=== PATIENT | male | born 1960 | race Caucasian/White ===

== ENCOUNTER 2018-08-19 05:13 | Inpatient (IN) ==
[2018-08-14 13:23] LABS: Appearance,Urine CLEAR; Bilirubin,Urine NEG (NEG); Color,Urine YELLOW; Glucose,Urine (UA) NEGATIVE (NEG); Leukocyte Esterase,Urine NEG /uL (NEG); Protein,Urine NEG (NEG); Specific Gravity,Urine 1.016 (1.000-1.035); Urine Blood NEG mg/dL (<0.03); Urobilinogen,Urine NEG (NEG)
[2018-08-14 14:21] LABS: Blood Urea Nitrogen 18 mg/dl (6-20)
[2018-08-14 14:34] LABS: Basophils # (Auto) 0 K/mcL (0.0-0.3); Basophils % (Auto) 0.6 % (0.0-2.0); Eosinophils # (Auto) 0.1 K/mcL (0.0-0.7); Eosinophils % (Auto) 2.3 % (0.0-7.0); Granulocytes % (Auto) 62.6 % (38.0-78.0); Lymphocytes # (Auto) 1.4 K/mcL (1.5-4.8); Lymphocytes % (Auto) 26.1 % (15.5-49.0); Mean Cell Volume 88.9 fL (80.0-100.0); Mean Corpuscular HGB Conc 33.7 g/dL (31.0-36.0); Monocytes # (Auto) 0.5 K/mcL (0.1-0.9); Monocytes % (Auto) 8.4 % (1.0-12.0); Platelet Count 248 K/mcL (140-440); RBC 5.25 M/mcL (4.50-5.90); Red Cell Distribution Width 13.1 % (11.5-14.5)
[2018-08-14 15:00] LABS: Estimated Average Glucose(eAG) 194 mg/dL; Hemoglobin A1C 8.4 % HGB (4.0-6.0)
[2018-08-19] MEDS ORDERED: PREGABALIN 75 MG CAPSULE PO SCH (07:00)
[2018-08-19] MEDS ORDERED: ceFAZolin 1 GM VIAL IV SCH (07:00)
[2018-08-19] MEDS ORDERED: oxyCODONE 10 MG TAB.ER.12H PO SCH (07:00)
[2018-08-19] MEDS ORDERED: TRANEXAMIC ACID 1,000 MG/10 ML VIAL IV ONE (07:45)
[2018-08-19] MEDS ORDERED: PROPOFOL 200 MG/20 ML VIAL IV ONE (07:45)
[2018-08-19] MEDS ORDERED: ONDANSETRON 4 MG/2 ML VIAL IV ONE (07:45)
[2018-08-19] MEDS ORDERED: GLYCOPYRROLATE 0.2 MG/ML VIAL IV ONE (07:45)
[2018-08-19] MEDS ORDERED: KETAMINE 100 MG/ML ML IV ONE (07:45)
[2018-08-19] MEDS ORDERED: MIDAZOLAM 5 MG/5 ML VIAL IV ONE (07:45)
[2018-08-19] MEDS ORDERED: DEXAMETHASONE 10 MG/ML VIAL IV ONE (07:45)
[2018-08-19] MEDS ORDERED: LIDOCAINE HCL/PF 100 MG/5 ML SYRINGE IV ONE (07:45)
[2018-08-19] MEDS ORDERED: PHENYLEPHRINE 10 MG/ML VIAL IV ONE (07:45)
[2018-08-19] MEDS ORDERED: HEPARIN 10,000 UNIT/ML VIAL IR ONE (08:25)
[2018-08-19] MEDS ORDERED: IPRATROPIUM/ALBUTEROL 3 ML AMPUL.NEB NEB PRN (08:41)
[2018-08-19] MEDS ORDERED: METHOCARBAMOL 1,000 MG/10 ML VIAL IV PRN (08:41)
[2018-08-19] MEDS ORDERED: MEPERIDINE 25 MG/ML SYRINGE IV PRN (08:41)
[2018-08-19] MEDS ORDERED: LACTATED RINGERS 250 ML IV PRN (08:41)
[2018-08-19] MEDS ORDERED: NALOXONE HCL 0.4 MG/ML VIAL IV PRN (08:41)
[2018-08-19] MEDS ORDERED: ACETAMINOPHEN 1,000 MG/100 ML BOTTLE IV ONE (08:41)
[2018-08-19] MEDS ORDERED: FLUMAZENIL 0.1 MG/ML ML IV PRN (08:41)
[2018-08-19] MEDS ORDERED: ONDANSETRON 4 MG/2 ML VIAL IV PRN ×2 (08:41→09:12)
[2018-08-19] MEDS ORDERED: fentaNYL 100 MCG/2 ML VIAL IV PRN (08:41)
[2018-08-19] MEDS ORDERED: LACTATED RINGERS 1,000 ML IV SCH (08:45)
[2018-08-19] MEDS ORDERED: BENZOCAINE/MENTHOL 1 LOZENGE PO PRN (09:12)
[2018-08-19] MEDS ORDERED: POLYETHYLENE GLYCOL 3350 17 GM PACKET PO PRN (09:12)
[2018-08-19] MEDS ORDERED: MAGNESIUM HYDROXIDE 30 ML ORAL.SUSP PO PRN (09:12)
[2018-08-19] MEDS ORDERED: FLEETS ADULT ENEMA PR PRN (09:12)
[2018-08-19] MEDS ORDERED: KETOROLAC 30 MG/ML VIAL IV PRN (09:12)
[2018-08-19] MEDS ORDERED: BISACODYL 10 MG SUPP.RECT PR PRN (09:12)
[2018-08-19] MEDS ORDERED: TRANEXAMIC ACID 1,000 MG/10 ML VIAL IV SCH (09:12)
--- NOTE | 2018-08-19 09:12 | Brief Operative Note ---
Date of procedure: 08/19/18 Pre-op diagnosis: Left hip severe DJD Post-op diagnosis: same Procedure: Left anterior total hip arthroplasty Grafts/Implants: Yes (Depuy Actis 6 std stem, +1.5 36 delta head, 54 cup, neutral altrx liner) Anesthesia: spinal, GLMA Findings: arthritis Complications: none Surgeon: Ulises Roper Assistant Reading Teacher: Michael Pérez Estimated blood loss (cc): 100 Specimens Removed/Pathology: none sent Condition: stable Disposition: PACU
[2018-08-19] MEDS ORDERED: DEXTROSE 50% 50 ML VIAL IV PRN (09:16)
[2018-08-19] MEDS ORDERED: DEXTROSE 31 GM ORAL.SUSP PO PRN (09:16)
--- NOTE | 2018-08-19 09:57 | XRay Report ---
HISTORY: Postop left hip replacement FINDINGS: There is a well-positioned left total hip prosthesis. No fractures present and there are no abnormal soft tissue calcifications around the joint. There are spurs present along the lateral borders of the iliac crests. IMPRESSION: Well-positioned left hip prosthesis Interpreted and Authenticated by: Jamaal Moore 08/19/18
--- NOTE | 2018-08-19 10:09 | Operative Note ---
DATE OF OPERATION: 08/19/2018 PREOPERATIVE DIAGNOSIS: Left hip severe osteoarthritis. POSTOPERATIVE DIAGNOSIS: Left hip severe osteoarthritis. PROCEDURE PERFORMED: Left anterior total hip arthroplasty placing a DePuy Actis size 6 standard offset femoral stem +1.5 36 mm delta ceramic head ball, 54 [place] no-hole cup with a neutral AltrX liner. SURGEON: Ulises Roper MD DATA MANAGEMENT: Barry Pérez PA-C ANESTHESIA: Spinal plus general. DRAINS: None. SPECIMENS: Femoral head and reamings, which were discarded. BLOOD LOSS: 100 mL COMPLICATIONS: None. POSTOPERATIVE CONDITION: Stable. INDICATIONS FOR SURGERY: This is a 58-year-old male who has had longstanding progressive worsening left hip pain. Radiographs showed large osteophyte off of the acetabulum with joint space narrowing. FINDINGS AT SURGERY: As above. Post implantation showed good component position with leg length and offset jainism and equalization. PROCEDURE IN DETAIL: The patient had been seen preoperatively and informed consent had been obtained after discussion of risks and benefits of surgery, risks including, but not limited to, bleeding, possibly requiring transfusion; infection, possibly requiring implant removal, prolonged IV antibiotics; injury to nerves, blood vessels other surrounding structures; anesthetic risks; incomplete or no resolution of symptoms; leg length discrepancy; dislocation; fracture; DVT and pulmonary embolus risks; and the possibility of needing further revision surgery. He understood these risks and wished to proceed. Correct operative site was marked and patient received spinal anesthesia. He was then taken to the operating room and LMA general given. The patient was carefully positioned on the fracture table. Left hip and groin were carefully prepped and draped in normal sterile fashion. A timeout was performed verifying patient name, operative site, and plan. Standard anterior approach incision was used with a scalpel through skin and subcutaneous tissue. Hemostasis was obtained with Bovie cautery. Blunt dissection was taken down to the tensor fascia and this was undermined circumferentially. IrriSept was irrigated and then a ring retractor was placed. Tensor fascia was incised in line with the muscle fibers and then blunt dissection taken medial to the muscle belly. Blunt cobra retractors were placed on the superior and inferior neck and then circumflex vessels were coagulated and cut and vastus fascia split distally. Anterior capsulectomy was performed and capsule releases taken out towards the trochanters. We then placed a corkscrew in the femoral head. Osteotome was used under fluoro to identify our neck cut trajectory and then oscillating tip saw used to make our cut. We then used a Carnes and corkscrew to lever out the head and then the acetabulum was exposed. Labrum was excised circumferentially. We did remove some of the osteophyte with the osteotome off the acetabulum to aid in getting into the acetabulum. We then used the reamer, directly medializing to the tear drop and then increasing reamer size and angle until a 53 got some rim ream. We then opened a 54 no-hole [place] cup. IrriSept was irrigated in the acetabulum, after a minute pulse lavaged with saline copiously and then we impacted using the [id number] at approximately 40 degrees of inclination and 25 degrees of anteversion. We got good pressfit and a center hole cover was placed. We removed further osteophyte from around the acetabular component and then the neutral AltrX liner was carefully aligned and impacted. Tabs were carefully checked with a tonsil to verify fully seating. Traction was removed from the leg. Capsule release was taken around the medial and posterior neck and then the leg was extended and adducted. Capsule was released out to the greater trochanter. Once we had adequate exposure box osteotome and an awl were used to initiate canal entry and then a rongeur and rasp to lateralize. We then began sequentially broaching. We went up to a size 5 with the [id number], did some limited calcar planning. We then trialled a standard neck with a +1.5 head ball. The hip was reduced without excessive tension. AP pelvis was taken to verify neutral rotation and AP of the nonoperative and operative hips were then taken and printed and overlaid. Our leg length and offset appeared equal. We redislocated and used the [id number]. We were able to impact the 5 stem down below our neck cut, so we went ahead and removed this and went to a size 6, which seated right at the neck cut. We removed the trial and opened a 6 Actis standard offset stem. Femoral canal was irrigated with IrriSept, after a minute pulse lavaged copiously irrigated with saline. The stem was then impacted until the collar seated on the neck and then the head ball was impacted onto the stem after making sure it was clean and dry. The hip was reduced without excessive tension. Final fluoro images were taken, saved and printed. We irrigated with IrriSept, after a minute pulse lavaged with saline. Tensor fascia was closed with two running #1 Vicryl stitches. A ring retractor was removed. IrriSept was irrigated again and after a minute pulse lavaged. Fat was tacked to fascia with Vicryl and then 2-0 Monocryl used for subcutaneous and rose for skin. Xeroform sterile dressings were applied. The patient was then awakened, extubated, and transferred to recovery in stable condition. BJB:adela Job ID: [id number] Doc ID: [id number] Ulises MACKAY
[2018-08-19] MEDS: 0.9 % SODIUM CHLORIDE 1,000 ML IV SCH ×2 (10:30→18:35)
[2018-08-19] MEDS: INSULIN LISPRO 1 UNIT/0.01 ML UNIT SQ SCH ×3 (11:18→20:38)
[2018-08-19] MEDS: HYDROcodone/APAP 10/325MG TABLET PO PRN (11:42)
[2018-08-19] MEDS: 0.9 % SODIUM CHLORIDE 10 ML SYRINGE IV SCH ×2 (12:49→22:39)
[2018-08-19] MEDS: ceFAZolin 1 GM VIAL IV SCH ×2 (14:57→23:12)
[2018-08-19] MEDS ORDERED: INSULIN ASPART SQ SCH (17:00)
[2018-08-19] MEDS: ASPIRIN 325 MG ENTERIC COATED TABLET PO SCH (20:37)
[2018-08-19] MEDS: DOCUSATE SODIUM 100 MG CAPSULE PO SCH (20:37)
[2018-08-19] MEDS: INSULIN GLARGINE, HUMAN 1 UNIT/0.01 ML SQ SCH (20:38)
[2018-08-19] MEDS ORDERED: SENNOSIDES 1 TABLET PO SCH (21:00)
[2018-08-20] MEDS: HYDROcodone/APAP 10/325MG TABLET PO PRN (00:02)
[2018-08-20] MEDS: 0.9 % SODIUM CHLORIDE 1,000 ML IV SCH ×2 (02:41→14:00)
[2018-08-20] MEDS: 0.9 % SODIUM CHLORIDE 10 ML SYRINGE IV SCH ×2 (04:57→14:23)
--- NOTE | 2018-08-20 07:49 | Discharge Summary ---
Providers - Providers Patient information: Note initiated : 08/20/18 at 7:46 am Service Date, if different from initiated Date: [] Patient: Ata Foss 58 y/o M admitted on 08/19/18 for Left Total Hip Arthroplasty. Chief Complaint: [] Discharge date: 08/20/18 Hospitalization Hospital course: Pt was admitted for a total hip arthroplasty. Pt was admitted on the day of procedure and spent 1 night on the floor for IV pain meds, IV abx, and PT. Pt will attend out-pt PT. Will use ASA for DVT prophylaxis. Will f/u at [facility] in 2 weeks. Discharge diagnosis: L hip OA Exam - Exam Clean and dry: Yes Weight bearing status: as tolerated Ortho Discharge - [facility] - Patient Instructions Diet: Regular Diet Activity: activity as tolerated Total Hip Protocol: Follow activity instructions as provided by Physical Therapy. Dressing Care: May shower in 2 days - Follow Up Plan Disposition: Home, Self-Care Prognosis: Good Rehab Potential: Good Overall status at discharge: patient is progressing back to baseline - Orders For Discharge Prescriptions: Aspirin [Ecotrin] 325 mg PO BID #60 tab.ec HYDROcodone/APAP 10/325MG [Empire 10-325Mg] 1 - 2 tab PO Q4HP PRN #60 tab PRN Reason: Pain Level 3-6 Pending Studies Resuscitation Status Do Not Resuscitate Diet Consistent Carbohydrate Diet Start FriAug 19 917 Hydrocodone Bitart/Acetaminophen (Empire 10/325mg) 0 tab PO Q4HP PRN PRN Reason: PAIN LEVEL 3-6 Last Admin: 08/20/18 00:02 Dose: 2 tab Admin: 08/19/18 11:42 Dose: 2 tab Aspirin (Ecotrin) 325 mg PO BID COUNTS INCLUDE 234 BEDS AT THE [facility] Last Admin: 08/19/18 20:37 Dose: 325 mg Diagnostic Test (Pha) (Accu-Chek) 1 each FS ACHS COUNTS INCLUDE 234 BEDS AT THE [facility] Last Admin: 08/19/18 20:37 Dose: 1 each Admin: 08/19/18 16:33 Dose: 1 each Admin: 08/19/18 10:36 Dose: 1 each Docusate Sodium (Colace) 100 mg PO BID COUNTS INCLUDE 234 BEDS AT THE [facility] Last Admin: 08/19/18 20:37 Dose: 100 mg Sodium Chloride (Sodium Chloride 0.9%) 1,000 mls @ 125 mls/hr IV .Q8H COUNTS INCLUDE 234 BEDS AT THE [facility] Last Admin: 08/20/18 02:41 Dose: 125 mls/hr Infusion: 08/20/18 02:35 Dose: 125 mls/hr Admin: 08/19/18 18:35 Dose: 125 mls/hr Infusion: 08/19/18 18:30 Dose: 125 mls/hr Admin: 08/19/18 10:30 Dose: 125 mls/hr Insulin Glargine (Lantus) 35 unit SQ BID COUNTS INCLUDE 234 BEDS AT THE [facility] Last Admin: 08/19/18 20:38 Dose: 35 unit Insulin Human Lispro (Humalog) 0 unit SQ ACHS VANNA; Protocol Last Admin: 08/19/18 20:38 Dose: 6 units Admin: 08/19/18 17:05 Dose: 6 units Admin: 08/19/18 11:18 Dose: 6 units Ketorolac Tromethamine (Toradol) 30 mg IV Q6HP PRN PRN Reason: Pain Stop: 08/21/18 09:14 Last Admin: 08/19/18 13:43 Dose: 30 mg Senna (Senokot) 2 tab PO HS COUNTS INCLUDE 234 BEDS AT THE [facility] Last Admin: 08/19/18 20:37 Dose: 2 tab Sodium Chloride (Saline Flush) 10 ml IV Q8 COUNTS INCLUDE 234 BEDS AT THE [facility] Last Admin: 08/20/18 04:57 Dose: Not Given Admin: 08/19/18 22:39 Dose: Not Given Admin: 08/19/18 12:49 Dose: Not Given Shift Summary 08/20/18 04:42 Shift Summary by Joaquin Simmons Pt has rested well tonight. He has had min pain - Empire 10 (2) PO x1 @ 0005 for 10 hip pain - pain /10 @ 0340. He is voiding per urinal - PVR scan was 50ml after a void of 375ml @ 2215 - no void @ 0340. No nausea. LT hip dressing - C,D,I. NS infusing @ 125ml/hr to his LT F/A. VS - WNL on R.A.. He has been up AMB in [place] x1 - gait stable w/ FWW & SBA. Pt is A&O x4, calm, pleasant, & cooperative. Initialized on 08/20/18 04:42 - END OF NOTE
[2018-08-20] MEDS: ASPIRIN 325 MG ENTERIC COATED TABLET PO SCH (08:32)
[2018-08-20] MEDS: INSULIN LISPRO 1 UNIT/0.01 ML UNIT SQ SCH ×2 (08:32→14:22)
[2018-08-20] MEDS: DOCUSATE SODIUM 100 MG CAPSULE PO SCH (08:33)
[2018-08-20] MEDS: INSULIN GLARGINE, HUMAN 1 UNIT/0.01 ML SQ SCH (08:33)
[2018-08-20] MEDS ORDERED: POTASSIUM CHLORIDE 20 MEQ TABLET PO ONE (12:07)
--- NOTE | 2018-08-20 12:27 | Internal Medicine Consult Note ---
Medical - CN: HPI - Data of Consult Consult date: 08/20/18 Requesting Physician: Ulises Roper Primary Care Provider: Anjelica Aguilar - Consult Narrative Reason for consult: Dizzy, near syncope, Hypotension- Rapid response History of present illness: Mr. Foss is a 58 year old M who was admitted under orthopedics and underwent left total hip arthroplasty by Dr. Bronson Roper. Patient was doing well postop day 1 and was about to be discharged when he experienced significant diaphoresis along with lightheadedness dizziness and became nearly unresponsive and the nurse called rapid response to which I responded. Initial blood pressure 50 systolic. Rapidly IV access was secured. Patient was placed on bed with foot and up to temporary increase blood pressure. Patient denied active chest pain but felt very dizzy. He denied chest palpitation/thunderclap headache or unilateral weakness or incontinence. He denies seizure episode. POC was obtained. IV fluid bolus 1 L via pressure bag ordered. Rapid evaluation revealed symmetrical breath sounds bilaterally along with pulse rate mid 50s. No significant swelling tenderness or restricted motion or bleeding around postoperative left hip site. STat EKG obtained reveals a normal sinus rhythm without any ST changes. POC revealed potassium 3.2, hematocrit 34, stat blood sugar 170. Reviewing medical records revealed a history of diabetes mellitus type 2 on basal prandial insulin, no prior history of coronary artery disease or recent hospitalization. Patient endorses to pain 3 out of 10. Over 20 minutes into rapid response patient's symptoms improved except for persistent dizziness. Blood pressure systolic improved to 100 systolic. Heart rate steady around 80. 40 mg potassium ordered p.o. 1 L crystalloid. Patient will be continued to be monitored over the next 2 hours. Sats 100% on 2 L oxygen nasal cannula. Other than that patient denies fever, vision change, diarrhea, dysuria, headache photophobia. Review of systems 10 point review of system was obtained and is negative except one discussed above Patient's mother is present at bedside CC: Ulises Roper Medical - CN: [facility] Medical history: DM type II Degenerative joint disease Surgical history: Left total hip arthroplasty Family history: reviewed and not pertinent Social history: Lives in the [facility] - CN: Meds Home Medications Medication Instructions Recorded Confirmed Type Insulin Aspart [Novolog] 0 unit SQ BIDAC 08/14/18 08/19/18 History Insulin Detemir [Levemir] 35 unit SQ BID 08/14/18 08/19/18 History Aspirin [Ecotrin] 325 mg PO BID #60 tab.ec 08/20/18 Rx HYDROcodone/APAP 10/325MG [[place] 1 - 2 tab PO Q4HP PRN #60 tab 08/20/18 Rx 10-325Mg] Allergies Allergy/AdvReac Type Severity Reaction Status Date / Time Sulfa (Sulfonamide Allergy Severe Swelling Verified 08/19/18 06:00 Antibiotics) of [SULFA (SULFONAMIDE Lip/Tongue/Throat ANTIBIOTICS)] lisinopril AdvReac Intermediate Hypotension Verified 08/19/18 06:00 Medical - CN: Exam - Constitutional Vitals: Temp Pulse Resp BP Pulse Ox 97.7 F 85 12 120/76 96 08/20/18 06:51 08/20/18 08:00 08/20/18 06:51 08/20/18 06:51 08/20/18 06:51 General appearance: no acute distress Exam: Patient diaphoretic head normocephalic Neck no lymphadenopathy No ear nose discharge Oral cavity dry S1-S2 regular rhythm Symmetrical breath sounds Abdomen soft nontender Lower extremity no cyanosis or clubbing Left hip operative site clean without any evidence of swelling or hematoma or bleeding. Cool clammy skin which improved over 20 minutes Psych anxious but alert and cooperative neuro nonfocal Medical - CN: Result - Labs CBC & Chem 7: 08/14/18 10:44 08/14/18 10:44 Labs: POC hematocrit 34, glucose 148, BUN 13, creatinine 1.1, sodium 141, potassium 3.2, chloride 98, CO2 27, calcium 1.2 - EKG Data EKG shows normal: sinus rhythm Medical - CN: A/P (1) Postoperative hypertension Status: Acute Assessment and plan: * Postoperative hypotension, hypovolemia versus vasovagal. Responded well to crystalloid challenge. Continue monitoring blood pressure. Encourage p.o. fluids. * Hypokalemia-start potassium replacement 40 mg, no significant changes on EKG * Pain management on as needed opioids * DM type II continue basal panel insulin * Left total total hip arthroplasty postop day 1-managed by orthopedics, cleared for discharge by orthopedics, on aspirin for DVT prophylaxis Plan * Serial blood pressures * If persistent hypotension transfer to telemetry * crystalloid challenge * Potassium replacement * Pain management
[2018-08-20] MEDS ORDERED: BENZOCAINE/MENTHOL 1 LOZENGE PO PRN (14:31)
[2018-08-20] MEDS ORDERED: BISACODYL 10 MG SUPP.RECT PR PRN (14:31)
[2018-08-20] MEDS ORDERED: DEXTROSE 50% 50 ML VIAL IV PRN (14:31)
[2018-08-20] MEDS ORDERED: 0.9 % SODIUM CHLORIDE 1,000 ML IV SCH ×2 (14:31→16:00)
[2018-08-20] MEDS ORDERED: DEXTROSE 31 GM ORAL.SUSP PO PRN (14:31)
[2018-08-20] MEDS ORDERED: MAGNESIUM HYDROXIDE 30 ML ORAL.SUSP PO PRN (14:31)
[2018-08-20] MEDS ORDERED: ONDANSETRON 4 MG/2 ML VIAL IV PRN (14:31)
[2018-08-20] MEDS ORDERED: HYDROcodone/APAP 10/325MG TABLET PO PRN (14:31)
[2018-08-20] MEDS ORDERED: FLEETS ADULT ENEMA PR PRN (14:31)
[2018-08-20] MEDS ORDERED: POLYETHYLENE GLYCOL 3350 17 GM PACKET PO PRN (14:31)
[2018-08-20] MEDS ORDERED: KETOROLAC 30 MG/ML VIAL IV PRN (14:31)
[2018-08-20] MEDS ORDERED: INSULIN LISPRO 1 UNIT/0.01 ML UNIT SQ SCH (17:00)
[2018-08-20 17:19] LABS: Creatine Kinase 346 IU/L (24-195); Creatine Kinase MB 1.9 ng/ml (0-4.9)
[2018-08-20] MEDS ORDERED: IOPAMIDOL 100 ML BOTTLE IV ONE (17:27)
--- NOTE | 2018-08-20 17:43 | Cat Scan Report ---
CLINICAL INFORMATION: Chest and low back pain following a left total hip arthroplasty COMPARISON: None TECHNIQUE: Axial images obtained through the chest. intravenous contrast administration was administered, and scanning was performed during pulmonary arterial phase. Sagittally and coronally reformatted images were obtained. MIP reformatted images. The radiation exposure was limited using dose reduction technology. FINDINGS: The pulmonary arteries are normal with no intraluminal filling defects. The heart is normal in size and contour and there is no plaque formation in the coronary arteries. The aorta is normal in caliber with no aneurysm or dissection. There are several bands of atelectasis located posteriorly in the both lower lobes. No consolidating infiltrate, mass or pleural effusion are present. Mediastinum and eileen are normal. Arthritis is seen in the thoracic spine with large anterior bridging spurs at multiple levels. IMPRESSION: No evidence of pulmonary emboli Atelectasis posteriorly in both lower lobes Interpreted and Authenticated by: Jamaal Moore 08/20/18
[2018-08-20] MEDS ORDERED: INSULIN GLARGINE, HUMAN 1 UNIT/0.01 ML SQ SCH (21:00)
[2018-08-20] MEDS ORDERED: DOCUSATE SODIUM 100 MG CAPSULE PO SCH (21:00)
[2018-08-20] MEDS ORDERED: ASPIRIN 325 MG ENTERIC COATED TABLET PO SCH (21:00)
[2018-08-20] MEDS ORDERED: SENNOSIDES 1 TABLET PO SCH (21:00)
[2018-08-20] MEDS ORDERED: 0.9 % SODIUM CHLORIDE 10 ML SYRINGE IV SCH (22:00)
== END 2018-08-20 18:00 | disposition home or self-care (01) | DRG 470 ==
LOC: MEDSUR 05:13
PROVIDERS: ADMIT Orthopaedic Surgery; ATTEND Orthopaedic Surgery
CPT/HCPCS: 62322; 73502; 80047; 85014; 97162; C1776; J0131; J0690; J1100; J1644; J1815; J1817; J1885; J2001; J2250; J2370; J2405; J7030; J7120; Q9967

== ENCOUNTER 2019-10-13 04:50 | Inpatient (IN) ==
[2019-10-08 12:55] LABS: Appearance,Urine CLEAR; Bilirubin,Urine NEG (NEG); Color,Urine STRAW; Culture Indicated,Urine NO; Glucose,Urine (UA) NEGATIVE (NEG); Ketones,Urine NEG (NEG); Leukocyte Esterase,Urine NEG /uL (NEG); Nitrate,Urine NEG (NEG); Protein,Urine NEG (NEG); Specific Gravity,Urine 1.011 (1.000-1.035); Urine Blood NEG mg/dL (<0.03); Urobilinogen,Urine NEG (NEG)
[2019-10-08 14:29] LABS: Basophils # (Auto) 0.03 K/mcL (0.00-0.30); Basophils % (Auto) 0.4 % (0.0-2.0); Eosinophils % (Auto) 2.9 % (0.0-7.0); Granulocytes % (Auto) 65.4 % (38.0-78.0); Hematocrit 43.8 % (40.1-51.0); Hemoglobin 14.9 g/dL (13.7-17.5); Lymphocytes # (Auto) 1.49 K/mcL (1.50-4.80); Lymphocytes % (Auto) 21.6 % (15.5-49.0); Mean Cell Volume 89.8 fL (80.0-100.0); Mean Platelet Volume 11.4 fL (7.4-10.4); Monocytes # (Auto) 0.67 K/mcL (0.10-0.90); Monocytes % (Auto) 9.7 % (1.0-12.0); Platelet Count 251 K/mcL (140-440); RBC 4.88 M/mcL (4.63-6.08); Red Cell Distribution Width 12.1 % (11.5-14.5); WBC 6.9 K/mcL (4.50-11.00)
[2019-10-08 14:30] LABS: Blood Urea Nitrogen 13 mg/dl (6-20); Calcium 9.4 mg/dl (8.6-10.4); Carbon Dioxide 26 mmol/L (22-30); Chloride 102 mmol/L (96-108); Glomerular Filtration Rate 55; Glucose 107 mg/dL (70-105)
[2019-10-08 14:34] LABS: Estimated Average Glucose(eAG) 146 mg/dL; Hemoglobin A1C 6.7 % HGB (4.0-6.0)
[2019-10-13] MEDS ORDERED: PREGABALIN 75 MG CAPSULE PO SCH (06:00)
[2019-10-13] MEDS ORDERED: oxyCODONE 10 MG TAB.ER.12H PO SCH (06:00)
[2019-10-13] MEDS ORDERED: ceFAZolin 2 GM in DEXTROSE 5% IN WATER 50 ML IV SCH (06:00)
[2019-10-13] MEDS ORDERED: IPRATROPIUM/ALBUTEROL 3 ML AMPUL.NEB NEB PRN ×2 (06:00→10:09)
[2019-10-13] MEDS ORDERED: SCOPOLAMINE 1 PATCH PATCH TOPICAL PRN (06:00)
[2019-10-13] MEDS ORDERED: fentaNYL 100 MCG/2 ML VIAL IV ONE (07:40)
[2019-10-13] MEDS ORDERED: DEXAMETHASONE 4 MG/ML VIAL IV ONE (07:40)
[2019-10-13] MEDS ORDERED: LIDOCAINE HCL/PF 100 MG/5 ML SYRINGE IV ONE (07:40)
[2019-10-13] MEDS ORDERED: TRANEXAMIC ACID 1,000 MG/10 ML VIAL IV ONE ×2 (07:40→09:46)
[2019-10-13] MEDS ORDERED: SUCCINYLCHOLINE 20 MG/ML ML IV ONE (07:40)
[2019-10-13] MEDS ORDERED: KETAMINE 100 MG/ML ML IV ONE (07:40)
[2019-10-13] MEDS ORDERED: PROPOFOL 200 MG/20 ML VIAL IV ONE (07:40)
[2019-10-13] MEDS ORDERED: ROPIVACAINE HCL/PF 30 ML VIAL IJ ONE (07:40)
[2019-10-13] MEDS ORDERED: ONDANSETRON 4 MG/2 ML VIAL IV ONE (07:40)
[2019-10-13] MEDS ORDERED: PHENYLEPHRINE 10 MG/ML VIAL IV ONE (07:40)
[2019-10-13] MEDS ORDERED: MAGNESIUM HYDROXIDE 30 ML ORAL.SUSP PO PRN (09:46)
[2019-10-13] MEDS ORDERED: POLYETHYLENE GLYCOL 3350 17 GM PACKET PO PRN (09:46)
[2019-10-13] MEDS ORDERED: FLEETS ADULT ENEMA PR PRN (09:46)
[2019-10-13] MEDS ORDERED: ONDANSETRON 4 MG/2 ML VIAL IV PRN ×2 (09:46→10:09)
[2019-10-13] MEDS ORDERED: HYDROmorphone 2 MG/ML VIAL IV PRN (09:46)
[2019-10-13] MEDS ORDERED: BENZOCAINE/MENTHOL 1 LOZENGE PO PRN (09:46)
[2019-10-13] MEDS ORDERED: BISACODYL 10 MG SUPP.RECT PR PRN (09:46)
[2019-10-13] MEDS ORDERED: KETOROLAC 30 MG/ML VIAL IV PRN ×2 (09:46→10:09)
--- NOTE | 2019-10-13 09:46 | Brief Operative Note ---
Date of procedure: 10/13/19 Pre-op diagnosis: R hip DJD, impingement Post-op diagnosis: same Procedure: Right anterior total hip arthroplasty Grafts/Implants: Yes (Depuy Actis 6 std stem, +5 36 delta head, 54 cup, neutral altrx ) Anesthesia: regional, GLMA Findings: large acetabular osteophytes Complications: none Surgeon: Ulises Roper Mobile Phlebotomist: Michael Pérez Estimated blood loss (cc): 250 Condition: stable Disposition: PACU
[2019-10-13] MEDS ORDERED: DEXTROSE 50% 50 ML VIAL IV PRN (09:51)
[2019-10-13] MEDS ORDERED: DEXTROSE 31 GM ORAL.SUSP PO PRN (09:51)
[2019-10-13] MEDS ORDERED: METHOCARBAMOL 1,000 MG/10 ML VIAL IV PRN (10:09)
[2019-10-13] MEDS ORDERED: diphenhydrAMINE 50 MG/ML VIAL IV PRN (10:09)
[2019-10-13] MEDS ORDERED: fentaNYL 100 MCG/2 ML VIAL IV PRN (10:09)
[2019-10-13] MEDS ORDERED: NALOXONE HCL 0.4 MG/ML VIAL IV PRN ×2 (10:09→20:23)
[2019-10-13] MEDS ORDERED: METOPROLOL TARTRATE 5 MG/5 ML VIAL IV PRN (10:09)
[2019-10-13] MEDS ORDERED: ePHEDrine 50 MG/ML AMPUL IV PRN (10:09)
[2019-10-13] MEDS ORDERED: ACETAMINOPHEN 1,000 MG/100 ML BOTTLE IV ONE (10:09)
[2019-10-13] MEDS ORDERED: MEPERIDINE 25 MG/ML SYRINGE IV PRN (10:09)
[2019-10-13] MEDS ORDERED: ATROPINE SULFATE 0.4 MG/ML VIAL IV PRN (10:09)
[2019-10-13] MEDS ORDERED: LACTATED RINGERS 1,000 ML IV SCH (10:15)
--- NOTE | 2019-10-13 10:16 | Operative Note ---
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 PROCEDURE PERFORMED: Right anterior total hip arthroplasty placing a DePuy [place] 54 no-hole cup, a neutral AltrX liner, a size 6 standard offset femoral stem with a +5, 36 mm delta ceramic head ball. SURGEON: Ulises Roper M.D. NUCLEAR LOGGING ENGINEER: Barry Pérez PA-C. The PA's assistance was required for the safe and efficient completion of the entire case. This provider's expertise and technical skill were required throughout the case. The PA assisted with preoperative coordination, intraoperative retraction, wound closure, dressing and splint application, as well as postoperative documentation and care coordination. ANESTHESIA: General plus fascial iliaca block. BLOOD LOSS: 250 mL. COMPLICATIONS: None. POSTOPERATIVE CONDITION: Stable. INDICATIONS FOR SURGERY: This is a 59-year-old male who has had longstanding, progressive worsening hip pain. Radiographs showed large acetabular osteophytes resulting in femoral acetabular impingement with arthrosis. FINDINGS AT SURGERY: Post implantation showed satisfactory component position. PROCEDURE IN DETAIL: The patient had been seen preoperatively. Informed consent obtained after discussion of risks and benefits of surgery. Risks including, but not limited to, bleeding; infection; injury to nerves, blood vessels, and other surrounding structures; anesthetic risks; incomplete or no resolution of symptoms; leg length discrepancy; dislocation; fracture; DVT and pulmonary embolus risks; and the possibility of needing further revision joint surgery. The patient understood these risks and wished to proceed. Correct operative site was marked and then spinal anesthesia given. The patient was then taken to the operating room and LMA general given. The patient was carefully transferred to the fracture table and then the operative hip was carefully prepped and draped in normal sterile fashion. Timeout was performed verifying patient name, operative site, and plan. Ioban was used to cover all skin surfaces. A standard anterior approach incision was made with a scalpel through skin and subcutaneous tissue. Hemostasis was obtained with Bovie cautery. Careful blunt dissection was taken down on the tensor fascia and then this was undermined circumferentially. IrriSept was irrigated and a ring retractor placed. Tensor fascia was incised in line with muscle fibers and then careful blunt dissection taken medial to the muscle belly. Blunt cobra retractors were placed on the superior and inferior femoral neck and then circumflex vessels were coagulated and cut and vastus fascia split distally. Anterior capsulectomy was performed and then the capsule releases. Corkscrew was placed in the femoral head. Prior to placement of the corkscrew we did take x-rays for joint point. Once a corkscrew was placed we used fluoroscopy to identify our approximate neck cut trajectory and then our femoral neck was cut with oscillating tip saw. Femoral head was removed and the acetabulum exposed. Labrum was excised circumferentially as well as soft tissue from the floor. We then irrigated with IrriSept. We then began sequentially reaming until 1 mm smaller than the final implant. We then opened the acetabular component. IrriSept was irrigated, after a minute pulse lavaged with saline and then the cup was impacted using the [id number]. Joint point was used to verify satisfactory cup position. A center hole cover was placed and then the acetabular liner was carefully aligned and impacted and carefully verified to be fully seated. We then released traction. The leg was externally rotated and released capsule around the medial neck. The leg was then extended and adducted. Capsule was released out towards greater trochanter and then the proximal femur was exposed. Box osteotome was used to gain canal entry and an awl was used to identify canal trajectory. [place] and rasp were used to lateralize and then we began sequentially broaching up to the final size. We calcar planed down onto the broach and then the neck trial and head ball were placed. The hip was reduced. Fluoro was brought in and x-rays taken, joint point was used to verify satisfactory position. We then re-dislocated and removed the trial implants. Definitive implants were opened. We then irrigated the femoral canal with IrriSept again, after a minute pulse lavaged with saline. The final stem was impacted and seated. We then opened the head ball. The stem was carefully cleaned and dried and the head ball was impacted. We then reduced the hip with satisfactory tension. Final fluoro images were taken and saved. We irrigated the joint with IrriSept, after a minute pulse lavaged with saline again and then closed the tensor fascia with two running #1 Vicryls, one running proximal, one running distal and a ring retractor was removed. Final IrriSept irrigation was done, after a minute final pulse lavage, and then fat was tacked to fascia with Vicryl and then 2-0 Monocryl for subcutaneous and rose for skin. Xeroform and sterile dressing were applied. The patient was then awakened, extubated, and transferred to recovery in stable condition. MELISA:sophia Job ID: [id number] Doc ID: [id number] Ulises Roper MD
--- NOTE | 2019-10-13 10:50 | XRay Report ---
HISTORY: FINDINGS: IMPRESSION: 0.4 minutes of fluoroscopy time was used. Interpreted and Authenticated by: Jamaal Moore 10/13/19
--- NOTE | 2019-10-13 10:50 | XRay Report ---
HISTORY: Postop right hip arthroplasty FINDINGS: There is a well-positioned newly inserted right total hip prosthesis. There is no fracture or abnormal soft tissue calcification. There is also an indwelling well-positioned left hip prosthesis. IMPRESSION: Well-positioned right hip prosthesis Interpreted and Authenticated by: Jamaal Moore 10/13/19
[2019-10-13] MEDS: 0.9 % SODIUM CHLORIDE 1,000 ML IV SCH ×2 (11:22→20:14)
[2019-10-13] MEDS: INSULIN LISPRO 1 UNIT/0.01 ML UNIT SQ SCH ×3 (11:36→22:21)
[2019-10-13] MEDS: 0.9 % SODIUM CHLORIDE 10 ML SYRINGE IV SCH ×2 (13:21→22:19)
[2019-10-13] MEDS: ceFAZolin 1 GM VIAL IV SCH ×2 (14:21→23:40)
[2019-10-13] MEDS: oxyCODONE HCL 5 MG TABLET PO PRN ×4 (15:20→22:20)
[2019-10-13] MEDS ORDERED: INSULIN ASPART SQ SCH (17:00)
[2019-10-13] MEDS: DOCUSATE SODIUM 100 MG CAPSULE PO SCH ×2 (20:09→22:19)
[2019-10-13] MEDS: SENNOSIDES 1 TABLET PO SCH ×2 (20:09→22:20)
[2019-10-13] MEDS: ASPIRIN 81 MG TAB.CHEW PO SCH ×2 (20:14→22:19)
[2019-10-13] MEDS ORDERED: 0.9 % SODIUM CHLORIDE 500 ML IV ONE (20:23)
[2019-10-13] MEDS ORDERED: 0.9 % SODIUM CHLORIDE 1,000 ML IV ONE (22:01)
--- NOTE | 2019-10-13 22:24 | Internal Medicine Consult Note ---
Medical - CN: HPI - Data of Consult Patient: known to practice within the last 3 years Consult date: 10/13/19 Requesting physician: Ulises Roper Primary Care Provider: LORIN Wang - Consult Narrative Reason for consult: near syncope History of present illness: Mr. Foss is a 59 year old M with diabetes and history of orthostatic hypotension and near syncope after surgeries. Occurred with spinal anesthesia on multiple occasions. Also occurred following 08/2018 LTHA. He had not PE or other etiology discovered including transfer to [facility] at that time. Today the pt was dizzy upon standing and near syncopal. Hypotensive with the [employer] evaluation improved with fluid but still orthostatic after 500 cc fluid bolus per protocol order. Dr. Roper requests consultation from hospitalist. CC: Ulises Roper - Constitutional Constitutional: Present: as per HPI. Absent: lethargy, malaise, weakness - EENT Eyes: Absent: change in vision - Cardiovascular Cardiovascular: Present: syncope. Absent: chest pain, irregular heart rhythm - Respiratory Respiratory: Absent: cough, dyspnea, hemoptysis, dyspnea on exertion - Gastrointestinal Gastrointestinal: Absent: nausea - Neurological Neurological: Present: as per HPI, dizziness. Absent: abnormal gait - Endocrine Endocrine: Absent: excessive sweating Medical - CN: PMH Functional capacity: independent ambulation (1 month recovery to normal ambulation with the LTHA a year ago. was walker 1 week cane 1 month) Medical - CN: Meds Home Medications Medication Instructions Recorded Confirmed Type Insulin Aspart [Novolog] 0 unit SQ BIDAC 08/14/18 10/13/19 History Insulin Detemir [Levemir] 40 - 45 unit SQ BID 08/14/18 10/08/19 History Allergies Allergy/AdvReac Type Severity Reaction Status Date / Time Sulfa (Sulfonamide Allergy Severe Swelling Verified 10/08/19 10:32 Antibiotics) of [SULFA (SULFONAMIDE Lip/Tongue/Throat ANTIBIOTICS)] lisinopril AdvReac Intermediate Hypotension Verified 10/08/19 10:32 Medical - CN: Exam - Constitutional Vitals: Temp Pulse Resp BP Pulse Ox 98.1 F 91 H 14 121/80 94 10/13/19 20:58 10/13/19 20:58 10/13/19 20:58 10/13/19 20:58 10/13/19 20:58 General appearance: average body habitus, no acute distress - Head Head exam: Present: normal inspection - Respiratory Respiratory exam: Present: normal respiratory exam, CTAB - Cardiovascular Cardiovascular exam: Present: normal rate and rhythm - GI/Abdominal GI/Abdominal exam: Present: normal bowel sounds, soft (obese abdominal), distended. Absent: rigid, tenderness - Extremities Exam Extremities exam: Absent: pedal edema - Psychiatric Psychiatric exam: Present: normal affect, normal mood Medical - CN: Result - Labs CBC & Chem 7: 10/08/19 11:04 10/08/19 11:04 - EKG Data EKG shows normal: sinus rhythm Rate: normal Medical - CN: A/P (1) Postural dizziness with near syncope Status: Acute Assessment and plan: this has occurred multiple occasions postoperatively before without more concerning etiology. Plan for fluid bolus and monitoring. resume PT/OT. (2) Diabetes mellitus Problem details: suspect a degree of autonomic dysfunction. cont SSI Status: Acute (3) Postoperative hypertension Status: Acute Assessment and plan: responding to crystalloid fluid bolus. no chest pain or AMS
[2019-10-13] MEDS: INSULIN GLARGINE, HUMAN 1 UNIT/0.01 ML SQ SCH (22:27)
[2019-10-14] MEDS: oxyCODONE HCL 5 MG TABLET PO PRN ×6 (01:48→22:02)
[2019-10-14] MEDS: 0.9 % SODIUM CHLORIDE 1,000 ML IV SCH ×5 (02:45→20:26)
[2019-10-14] MEDS: 0.9 % SODIUM CHLORIDE 10 ML SYRINGE IV SCH ×3 (04:36→21:57)
[2019-10-14] MEDS: INSULIN LISPRO 1 UNIT/0.01 ML UNIT SQ SCH ×4 (07:04→21:01)
--- NOTE | 2019-10-14 07:43 | Discharge Summary ---
Providers - Providers Patient information: Note initiated : 10/14/19 at 7:41 am Service Date, if different from initiated Date: [] Patient: Ata Foss 59 y/o M admitted on 10/13/19 for Right Total Hip Arthroplasty. Chief Complaint: [] Discharge date: 10/14/19 Hospitalization Hospital Course: Pt was admitted for a R [place]. Pt underwent procedure on the day of admission. Pt then transferred to the floor for IV pain meds IV abx and PT. Whn doing PT pt had a hypotensive episode and a code white was called. Pt was evaluated by hospitalist. Discharge was delayed untill pt BP was stabilized. Pt will f/u in 2 weeks with ortho. Will take ASA for DVT prophylaxis. Discharge diagnosis: L hip OA Exam - Exam Clean and dry: Yes Weight bearing status: as tolerated Ortho Discharge - [place] - Patient Instructions Diet: Regular Diet Activity: activity as tolerated Total Hip Protocol: Follow activity instructions as provided by Physical Therapy. Dressing Care: May shower in 2 days - Follow Up Plan Disposition: Home, Self-Care Prognosis: Good Rehab Potential: Good Overall status at discharge: patient is progressing back to baseline - Orders For Discharge Prescriptions: Aspirin 81 mg PO BID #60 tab.chew Transmission Status: Pending to [facility] Hydrocodone/APAP 7.5/325Mg [[place] 7.5-325Mg] 1 - 2 tab PO Q6HP PRN #75 tab PRN Reason: Pain Prescription Printed Pending Studies Resuscitation Status Full Code Diet Consistent Carbohydrate Diet Start FriOct 13 09 Aspirin (Aspirin) 81 mg PO BID [facility] Last Admin: 10/13/19 22:19 Dose: 81 mg Documented by: JOSEMANUEL Diagnostic Test (Pha) (Accu-Chek) 1 each FS ACHS [facility] Last Admin: 10/14/19 07:04 Dose: 1 each Documented by: Admin: 10/13/19 20:34 Dose: 1 each Documented by: Admin: 10/13/19 16:53 Dose: 1 each Documented by: Admin: 10/13/19 11:30 Dose: 1 each Documented by: JERMAINE Docusate Sodium (Colace) 100 mg PO BID [facility] Last Admin: 10/13/19 22:19 Dose: 100 mg Documented by: JOSEMANUEL Hydromorphone HCl (Dilaudid) 0 mg IV Q2HP PRN PRN Reason: PAIN LEVEL > 6 Last Admin: 10/13/19 11:22 Dose: 0.5 mg Documented by: [email or web address] Sodium Chloride (Sodium Chloride 0.9%) 1,000 mls @ 125 mls/hr IV .Q8H [facility] Last Admin: 10/14/19 02:45 Dose: 125 mls/hr Documented by: Infusion: 10/14/19 02:45 Dose: 125 mls/hr Documented by: Admin: 10/13/19 20:14 Dose: 125 mls/hr Documented by: Infusion: 10/13/19 19:22 Dose: 125 mls/hr Documented by: Admin: 10/13/19 11:22 Dose: 125 mls/hr Documented by: [email or web address] Insulin Glargine (Lantus) 40 - 45 unit SQ BID [facility] Last Admin: 10/13/19 22:27 Dose: 45 unit Documented by: JOSEMANUEL Insulin Human Lispro (Humalog) 0 unit SQ ACHS [facility]; Protocol Last Admin: 10/14/19 07:04 Dose: 2 unit Documented by: Admin: 10/13/19 22:21 Dose: Not Given Documented by: Admin: 10/13/19 17:13 Dose: 4 unit Documented by: [email or web address] Admin: 10/13/19 11:36 Dose: 4 unit Documented by: [email or web address] Ondansetron HCl (Zofran) 4 mg IV Q4HP PRN PRN Reason: Nausea And Vomiting Last Admin: 10/13/19 20:29 Dose: 4 mg Documented by: JOSEMANUEL Oxycodone HCl (Roxicodone) 0 mg PO Q4HP PRN PRN Reason: PAIN LEVEL 3-6 Last Admin: 10/14/19 07:03 Dose: 5 mg Documented by: Admin: 10/14/19 01:48 Dose: 5 mg Documented by: Admin: 10/13/19 22:20 Dose: 5 mg Documented by: Admin: 10/13/19 18:01 Dose: 5 mg Documented by: [email or web address] Admin: 10/13/19 15:20 Dose: 5 mg Documented by: [email or web address] Senna (Senokot) 2 tab PO HS [facility] Last Admin: 10/13/19 22:20 Dose: 2 tab Documented by: JOSEMANUEL Sodium Chloride (Saline Flush) 10 ml IV Q8 [facility] Last Admin: 10/14/19 04:36 Dose: Not Given Documented by: Admin: 10/13/19 22:19 Dose: Not Given Documented by: Admin: 10/13/19 13:21 Dose: Not Given Documented by: [email or web address] Shift Summary 10/14/19 03:59 Shift Summary by Nataliya Zavala Pt up to bathroom at beginning of shift to void. Pt able to void 300mls. Pt became very dizzy and light headed. Pt assisted to W/C and became unresponsive. BP 54/40 mar dobbs called. Pt had emeses of 100mls at this time. No concerns for aspiration. Pt assisted back to bed and 500ml fluid bolus given per mar dobbs protocol. Pt responded to bolus became more responsive and less dizzy BP quickly increased. Hospitalist then ordered orthostatic BP that showed a 15-20 change in SBP. 1L fluid bolus given at this time. Pt has denied dizziness the remainder of the night. BP have been stable in the low 100's. Tele in place and shows NSR. Pt voiding QS via urinal in bed. Pt has not been out of bed since event. Pain controlled with one oxy. Orders per hospitalist are to continue PT. Will update with verbal report. Initialized on 10/14/19 03:59 - END OF NOTE
[2019-10-14] MEDS: ASPIRIN 81 MG TAB.CHEW PO SCH ×2 (10:14→20:39)
[2019-10-14] MEDS: INSULIN GLARGINE, HUMAN 1 UNIT/0.01 ML SQ SCH ×2 (10:14→21:56)
[2019-10-14] MEDS: DOCUSATE SODIUM 100 MG CAPSULE PO SCH ×2 (10:24→20:39)
[2019-10-14 13:12] LABS: Basophils # (Auto) 0.02 K/mcL (0.00-0.30); Basophils % (Auto) 0.2 % (0.0-2.0); Granulocytes % (Auto) 81.4 % (38.0-78.0); Hematocrit 33.9 % (40.1-51.0); Hemoglobin 11.2 g/dL (13.7-17.5); Lymphocytes # (Auto) 0.81 K/mcL (1.50-4.80); Lymphocytes % (Auto) 8.4 % (15.5-49.0); Mean Cell Volume 91.4 fL (80.0-100.0); Monocytes # (Auto) 0.87 K/mcL (0.10-0.90); Platelet Count 189 K/mcL (140-440); RBC 3.71 M/mcL (4.63-6.08); Red Cell Distribution Width 12.6 % (11.5-14.5); WBC 9.7 K/mcL (4.50-11.00)
[2019-10-14 13:26] LABS: Blood Urea Nitrogen 11 mg/dl (6-20); Calcium 7.8 mg/dl (8.6-10.4); Carbon Dioxide 23 mmol/L (22-30); Chloride 107 mmol/L (96-108); Glomerular Filtration Rate 74; Glucose 166 mg/dL (70-105); Thyroid Stimulating Hormone 1.39 uIU/ml (0.27-5.01)
[2019-10-14] MEDS ORDERED: MIDODRINE 5 MG TABLET PO SCH (15:54)
--- NOTE | 2019-10-14 15:58 | Internal Med Progress Note ---
Medical - PN: Subj Patient information: Note initiated : 10/14/19 at 3:55 pm Service Date, if different from initiated Date: [] Patient: Ata Foss 59 y/o M admitted on 10/13/19 for Right Total Hip Arthroplasty. Chief Complaint: [] Interval history: pt feels better but still dizzy and bp drop when standing. Feels fine while supine. No nausea or vomiting. appetite is poor. - Constitutional Vitals: Vital Signs Temp Pulse Resp BP Pulse Ox 98.1 F 100 H 15 126/77 95 10/14/19 11:49 10/14/19 13:00 10/14/19 11:49 10/14/19 11:49 10/14/19 11:49 Period Temp Pulse Resp BP Sys/Ferrara Pulse Ox Last 24 Hr 97.6 F-98.6 F 86-104 12-22 56-140/40-86 92-99 Intake and Output 10/14/19 10/14/19 10/14/19 05:59 13:59 21:59 Intake Total 935 1170 Output Total 550 700 Balance 385 470 Intake & Output: Intake & Output 10/14/19 10/14/19 10/14/19 05:59 13:59 21:59 Intake Total 935 1170 Output Total 550 700 Balance 385 470 Intake: IV 815 1050 Sodium Chloride 0.9% 1,000 ml @ 815 1000 125 mls/hr IV .Q8H [facility] Rx#: [id number] Ancef 2 gm In Dextrose 5% in 50 Water 50 ml @ 100 mls/hr IV PREOP [facility] Rx#:[id number] Oral 120 120 Output: Void Amount 550 700 Other: Meal Breakfast Percent of Meal Consumed 50% Feeding Ability Independent Urine Appearance Clear Clear Urine Color Bright Yellow Bright Yellow Urine Odor Normal Normal - Respiratory Respiratory exam: Present: normal respiratory exam - Cardiovascular Cardiovascular exam: Present: normal rate and rhythm - GI/Abdominal GI/Abdominal exam: Present: soft. Absent: tenderness - Expanded Lower Extremity Exam Hip exam: Present: swelling (some swelling and fullness right upper hip. non tender.) Medical - PN: Obj Da - Labs CBC & Chem 7: 10/14/19 12:10 10/14/19 12:10 Labs: Abnormal Lab Results 10/14/19 10/14/19 12:10 12:10 RBC 3.71 L Hgb 11.2 L Hct 33.9 L MPV 11.0 H Gran % 81.4 H Lymph % (Auto) 8.4 L Lymph # (Auto) 0.81 L Glucose 166 H Calcium 7.8 L Meds: Medications Aspirin (Aspirin) 81 mg PO BID [facility] Last Admin: 10/14/19 10:14 Dose: 81 mg Documented by: Bisacodyl (Dulcolax) 10 mg ME Q2-3DAYS PRN PRN Reason: Constipation Dextrose (Dextrose 50%) 0 ml IV UD PRN PRN Reason: Hypoglycemia Diagnostic Test (Pha) (Accu-Chek) 1 each FS [facility] Last Admin: 10/14/19 12:19 Dose: 1 each Documented by: Docusate Sodium (Colace) 100 mg PO BID [facility] Last Admin: 10/14/19 10:24 Dose: 100 mg Documented by: Glucose (Insta-Glucose) 15 gm PO PRN PRN PRN Reason: Hypoglycemia Hydromorphone HCl (Dilaudid) 0 mg IV Q2HP PRN PRN Reason: PAIN LEVEL > 6 Last Admin: 10/13/19 11:22 Dose: 0.5 mg Documented by: Sodium Chloride (Sodium Chloride 0.9%) 1,000 mls @ 500 mls/hr IV .Q2H [facility] Insulin Glargine (Lantus) 40 - 45 unit SQ BID [facility] Last Admin: 10/14/19 10:14 Dose: 40 unit Documented by: Insulin Human Lispro (Humalog) 0 unit SQ [facility]; Protocol Last Admin: 10/14/19 12:19 Dose: 2 unit Documented by: Ketorolac Tromethamine (Toradol) 30 mg IV Q6HP PRN PRN Reason: Pain Stop: 10/15/19 09:49 Magnesium Hydroxide (Milk Of Magnesia) 30 ml PO BIDP PRN PRN Reason: Constipation Midodrine (Midodrine Hcl) 5 mg PO TID@0800,1200,1700 [facility] Naloxone HCl (Narcan) 0.4 mg IV ONCE PRN PRN Reason: Opiate Reversal Ondansetron HCl (Zofran) 4 mg IV Q4HP PRN PRN Reason: Nausea And Vomiting Last Admin: 10/13/19 20:29 Dose: 4 mg Documented by: Oxycodone HCl (Roxicodone) 0 mg PO Q4HP PRN PRN Reason: PAIN LEVEL 3-6 Last Admin: 10/14/19 15:08 Dose: 5 mg Documented by: Polyethylene Glycol (Miralax) 17 gm PO DAILYP PRN PRN Reason: Constipation Senna (Senokot) 2 tab PO HS [facility] Last Admin: 10/13/19 22:20 Dose: 2 tab Documented by: Sodium Biphosphate/Sodium Phosphate (Fleets Adult) 1 dose ME Q3-4DAYS PRN PRN Reason: Constipation Sodium Chloride (Saline Flush) 10 ml IV Q8 [facility] Last Admin: 10/14/19 13:45 Dose: Not Given Documented by: Throat Lozenges (Cepacol) 1 lozenge PO PRN PRN PRN Reason: Sore Throat Medical - PN: A/P - Time Spent With Patient Total time spent is greater than 50% in coordination of care (as documented) at patient's floor/unit and/or counseling patient: 25 - 35 minutes (1) Postural dizziness with near syncope Status: Acute Assessment and plan: additional 1 liter NS bolus. Start Midodrine 5mg tid. check orthostatics q 8 hours. continue therapy. sl IV. Cortisol and TSh checked ok. Current Visit: Yes (2) Diabetes mellitus Problem details: suspect a degree of autonomic dysfunction. cont SSI Status: Acute Assessment and plan: cont SSI and diabetic diet A1C 6.7 Current Visit: Yes (3) Postoperative hypertension Status: Acute Assessment and plan: has occurred last 3 surgeries. as above and follow. EKG and CXR ok Current Visit: No Medical - PN: Qual - VTE Deep Vein Thrombosis/Pulmonary Embolism Present on Admission: No
[2019-10-14] MEDS: MIDODRINE 5 MG TABLET PO SCH (17:21)
[2019-10-14] MEDS: SENNOSIDES 1 TABLET PO SCH (20:39)
[2019-10-15] MEDS ORDERED: COSYNTROPIN 0.25 MG VIAL IV ONE (05:01)
[2019-10-15] MEDS: 0.9 % SODIUM CHLORIDE 10 ML SYRINGE IV SCH ×3 (05:01→22:00)
[2019-10-15] MEDS: oxyCODONE HCL 5 MG TABLET PO PRN ×2 (05:14→21:21)
--- NOTE | 2019-10-15 07:46 | Orthopedic Progress Note ---
Orthopedics - Auxillary Note - Subjective Patient Information: Note initiated : 10/15/19 at 7:44 am Service Date, if different from initiated Date: [] Patient: Ata Foss 59 y/o M admitted on 10/13/19 for Right Total Hip Arthroplasty. Chief Complaint: dizziness with standing. Mild to moderate R hip pain. bandages c/d/i nvi-distal Vital Signs Temp Pulse Pulse Pulse Pulse Pulse Resp 10/15/19 05:10 99.2 F H 10/15/19 05:09 10/15/19 05:06 10/15/19 05:00 10/15/19 04:01 10/15/19 00:01 10/14/19 22:01 10/14/19 21:01 10/14/19 20:01 98.4 F 10/14/19 20:00 10/14/19 19:51 10/14/19 19:47 10/14/19 19:31 10/14/19 19:05 10/14/19 17:00 100 H 10/14/19 16:00 111 H 107 H 10/14/19 13:00 102 H 100 H 10/14/19 11:49 98.1 F 102 H 15 10/14/19 09:00 100 H 10/14/19 08:18 98.5 F 102 H 17 10/14/19 08:00 102 H 100 H 102 H 99 H 17 BP BP BP BP BP Pulse Ox 10/15/19 05:10 78/53 10/15/19 05:09 109/69 10/15/19 05:06 134/83 10/15/19 05:00 78/53 109/69 134/83 10/15/19 04:01 131/77 10/15/19 00:01 140/77 10/14/19 22:01 150/86 10/14/19 21:01 153/88 10/14/19 20:01 135/75 10/14/19 20:00 141/88 123/75 84/60 10/14/19 19:51 84/60 10/14/19 19:47 123/75 10/14/19 19:31 141/88 10/14/19 19:05 142/79 10/14/19 17:00 10/14/19 16:00 111/65 97/59 10/14/19 13:00 10/14/19 11:49 126/77 95 10/14/19 09:00 10/14/19 08:18 112/71 92 10/14/19 08:00 90/56 124/70 92 Intake and Output 10/14/19 10/15/19 10/15/19 21:59 05:59 13:59 Intake Total 1000 1000 Output Total 450 975 Balance 550 25 Intake: IV 1000 1000 Sodium Chloride 0.9% 1,000 ml @ 1000 1000 500 mls/hr IV .Q2H [facility] Rx#: [id number] Output: Void Amount 450 975 Other: Urine Appearance Clear Clear Urine Color Bright Yellow Bright Yellow Urine Odor Normal Weight 201 lb 8 oz Laboratory Results - last 24 hr 10/14/19 10/14/19 10/15/19 12:10 12:10 05:01 WBC 9.7 RBC 3.71 L Hgb 11.2 L Hct 33.9 L MCV 91.4 MCH 30.2 MCHC 33.0 RDW 12.6 Plt Count 189 MPV 11.0 H Gran % 81.4 H Lymph % (Auto) 8.4 L [place] % (Auto) 9.0 Eos % (Auto) 1.0 Baso % (Auto) 0.2 Gran # 7.86 Lymph # (Auto) 0.81 L [place] # (Auto) 0.87 Eos # (Auto) 0.10 Baso # (Auto) 0.02 Sodium 139 Potassium 4.2 Chloride 107 Carbon Dioxide 23 Anion Gap 9.0 BUN 11 Creatinine 1.1 GFR Calculation 74 Glucose 166 H Calcium 7.8 L TSH 1.39 Random Cortisol 10.27 Cortisol AM Sample 11.4 Cortisol Resp 30 Min 18.5 Cortisol Resp 60 Min 10/15/19 06:07 WBC RBC Hgb Hct MCV MCH MCHC RDW Plt Count MPV Gran % Lymph % (Auto) [place] % (Auto) Eos % (Auto) Baso % (Auto) Gran # Lymph # (Auto) [place] # (Auto) Eos # (Auto) Baso # (Auto) Sodium Potassium Chloride Carbon Dioxide Anion Gap BUN Creatinine GFR Calculation Glucose Calcium TSH Random Cortisol Cortisol AM Sample Cortisol Resp 30 Min Cortisol Resp 60 Min 21.2 s/p R [place]-stable orthopaedically. -mobilize with PT -may discharge once cleared medically -f/u in 2 weeks -leave dressing on 7-14 days -weight bear as tolerated. post-op hypotension -cont medical management per hospitalist
[2019-10-15] MEDS: MIDODRINE 5 MG TABLET PO SCH ×2 (08:03→11:29)
[2019-10-15] MEDS: INSULIN LISPRO 1 UNIT/0.01 ML UNIT SQ SCH ×4 (08:03→21:18)
[2019-10-15] MEDS: ASPIRIN 81 MG TAB.CHEW PO SCH ×2 (09:09→21:18)
[2019-10-15] MEDS: DOCUSATE SODIUM 100 MG CAPSULE PO SCH ×2 (09:09→21:18)
[2019-10-15] MEDS: INSULIN GLARGINE, HUMAN 1 UNIT/0.01 ML SQ SCH ×2 (09:09→21:19)
[2019-10-15] MEDS: HYDROCORTISONE SOD SUCC 100 MG VIAL IV SCH ×3 (10:23→17:33)
[2019-10-15] MEDS ORDERED: HYDROCORTISONE SOD SUCC 100 MG VIAL IV SCH (12:00)
--- NOTE | 2019-10-15 13:29 | Internal Med Progress Note ---
Medical - PN: Subj Patient information: Note initiated : 10/15/19 at 1:28 pm Service Date, if different from initiated Date: [] Patient: Ata Foss 59 y/o M admitted on 10/13/19 for Right Total Hip Arthroplasty. Chief Complaint: [Near syncope upon standing] Interval history: Patient was hypotensive this morning upon standing dropping from [address] down to 85 because he was 2 days postop and still unable to do therapy and also without good spots to Midrin I elected to do cosyntropin stim test. Patient had baseline cortisol 11 stimulated to 21 this is essentially a low normal stimulation given his condition. I would not deem this absolute but did elect to give him stress dose steroid. 2 hours after 50 mg of IV cortisol patient was getting up without dizziness and states he feels much much better. Pertinent ROS: No chest pain or nausea. Patient states that he after past surgery did pass out 4 days after surgery while was at physical therapy but beyond that in between his surgeries he has no symptoms of dizziness or orthostasis - Constitutional Vitals: Vital Signs Temp Pulse Resp BP Pulse Ox 98.7 F 102 H 20 154/94 94 10/15/19 12:00 10/15/19 12:45 10/15/19 12:00 10/15/19 12:00 10/15/19 12:00 Period Temp Pulse Resp BP Sys/Ferrara Pulse Ox Last 24 Hr 98.4 F-99.2 F 97-111 18-20 78-154/53-94 92-94 Intake and Output 10/14/19 10/15/19 10/15/19 21:59 05:59 13:59 Intake Total 1000 1000 Output Total 450 975 700 Balance 550 25 -700 Weight 201 lb 8 oz Intake & Output: Intake & Output 10/14/19 10/15/19 10/15/19 21:59 05:59 13:59 Intake Total 1000 1000 Output Total 450 975 700 Balance 550 25 -700 Weight 201 lb 8 oz Intake: IV 1000 1000 Sodium Chloride 0.9% 1,000 ml @ 1000 1000 500 mls/hr IV .Q2H [facility] Rx#: [id number] Output: Void Amount 450 975 700 Other: Meal Breakfast Percent of Meal Consumed 75% Feeding Ability Independent Urine Appearance Clear Clear Urine Color Bright Yellow Bright Yellow Urine Odor Normal General appearance: average body habitus Exam: Mild to moderate obesity - Respiratory Respiratory exam: Present: normal respiratory exam, CTAB - Cardiovascular Cardiovascular exam: Present: normal rate and rhythm - Extremities Exam Extremities exam: Absent: pedal edema - Neurological Exam Neurological exam: Present: alert, oriented X3 - Psychiatric Psychiatric exam: Present: normal affect, normal mood - Skin Skin exam: Present: dry, warm Medical - PN: Obj Da - Labs CBC & Chem 7: 10/14/19 12:10 10/14/19 12:10 Labs: Abnormal Lab Results 10/14/19 10/14/19 12:10 12:10 RBC 3.71 L Hgb 11.2 L Hct 33.9 L MPV 11.0 H Gran % 81.4 H Lymph % (Auto) 8.4 L Lymph # (Auto) 0.81 L Glucose 166 H Calcium 7.8 L Meds: Medications Aspirin (Aspirin) 81 mg PO BID [facility] Last Admin: 10/15/19 09:09 Dose: 81 mg Documented by: Bisacodyl (Dulcolax) 10 mg [place] Q2-3DAYS PRN PRN Reason: Constipation Dextrose (Dextrose 50%) 0 ml IV UD PRN PRN Reason: Hypoglycemia Diagnostic Test (Pha) (Accu-Chek) 1 each FS [facility] Last Admin: 10/15/19 11:29 Dose: 1 each Documented by: Docusate Sodium (Colace) 100 mg PO BID [facility] Last Admin: 10/15/19 09:09 Dose: 100 mg Documented by: Glucose (Insta-Glucose) 15 gm PO PRN PRN PRN Reason: Hypoglycemia Hydrocortisone Sodium Succinate (Solu-Cortef) 50 mg IV Q6 [facility] Stop: 10/16/19 06:01 Last Admin: 10/15/19 10:23 Dose: 50 mg Documented by: Hydromorphone HCl (Dilaudid) 0 mg IV Q2HP PRN PRN Reason: PAIN LEVEL > 6 Last Admin: 10/13/19 11:22 Dose: 0.5 mg Documented by: Insulin Glargine (Lantus) 40 - 45 unit SQ BID [facility] Last Admin: 10/15/19 09:09 Dose: 40 unit Documented by: Insulin Human Lispro (Humalog) 0 unit SQ [facility]; Protocol Last Admin: 10/15/19 11:29 Dose: 2 unit Documented by: Magnesium Hydroxide (Milk Of Magnesia) 30 ml PO BIDP PRN PRN Reason: Constipation Naloxone HCl (Narcan) 0.4 mg IV ONCE PRN PRN Reason: Opiate Reversal Ondansetron HCl (Zofran) 4 mg IV Q4HP PRN PRN Reason: Nausea And Vomiting Last Admin: 10/13/19 20:29 Dose: 4 mg Documented by: Oxycodone HCl (Roxicodone) 0 mg PO Q4HP PRN PRN Reason: PAIN LEVEL 3-6 Last Admin: 10/15/19 05:14 Dose: 5 mg Documented by: Polyethylene Glycol (Miralax) 17 gm PO DAILYP PRN PRN Reason: Constipation Senna (Senokot) 2 tab PO HS [facility] Last Admin: 10/14/19 20:39 Dose: 2 tab Documented by: Sodium Biphosphate/Sodium Phosphate (Fleets Adult) 1 dose [place] Q3-4DAYS PRN PRN Reason: Constipation Sodium Chloride (Saline Flush) 10 ml IV Q8 [facility] Last Admin: 10/15/19 05:01 Dose: 10 ml Documented by: Throat Lozenges (Cepacol) 1 lozenge PO PRN PRN PRN Reason: Sore Throat Medical - PN: A/P - Time Spent With Patient Total time spent is greater than 50% in coordination of care (as documented) at patient's floor/unit and/or counseling patient: 25 - 35 minutes (1) Postural dizziness with near syncope Status: Acute Assessment and plan: Midrin was not effective as patient was markedly orthostatic this morning. His cosyntropin stim test was technically normal but suboptimal given his condition. I like to give him stress dose steroids. 2 hours later he no longer is orthostatic is from supine to standing position without any negative symptoms. Stop Midrin. We will do a quick wean of his steroids to oral then off plan for discharge Current Visit: Yes (2) Diabetes mellitus Problem details: suspect a degree of autonomic dysfunction. cont SSI Status: Acute Assessment and plan: cont SSI and diabetic diet A1C 6.7 Current Visit: Yes (3) Postoperative hypertension Problem details: Patient has had this following surgery 5 times in the past. This time he responded to steroids will follow Status: Acute Assessment and plan: has occurred last 3 surgeries. as above and follow. EKG and CXR ok Current Visit: No Medical - PN: Qual - VTE Deep Vein Thrombosis/Pulmonary Embolism Present on Admission: No
[2019-10-15] MEDS: SENNOSIDES 1 TABLET PO SCH (21:19)
[2019-10-16] MEDS: HYDROCORTISONE SOD SUCC 100 MG VIAL IV SCH ×2 (00:24→05:45)
[2019-10-16] MEDS: 0.9 % SODIUM CHLORIDE 10 ML SYRINGE IV SCH (05:45)
[2019-10-16] MEDS: INSULIN LISPRO 1 UNIT/0.01 ML UNIT SQ SCH ×2 (07:40→12:39)
[2019-10-16] MEDS: ASPIRIN 81 MG TAB.CHEW PO SCH (10:04)
[2019-10-16] MEDS: INSULIN GLARGINE, HUMAN 1 UNIT/0.01 ML SQ SCH (10:04)
[2019-10-16] MEDS: DOCUSATE SODIUM 100 MG CAPSULE PO SCH (10:04)
[2019-10-16] MEDS: oxyCODONE HCL 5 MG TABLET PO PRN (10:45)
--- NOTE | 2019-10-16 11:35 | Orthopedic Progress Note ---
Subjective Patient information: Note initiated : 10/16/19 at 11:33 am Service Date, if different from initiated Date: [] Patient: Ata Foss 59 y/o M admitted on 10/13/19 for Right Total Hip Arthroplasty. Chief Complaint: [] no ortho complaints Objective Vital signs: Vital Signs Temp Pulse Pulse Pulse Pulse Pulse Resp 10/16/19 07:28 97.9 F 20 10/16/19 04:01 10/16/19 03:07 10/16/19 03:00 89 100 H 88 10/16/19 00:01 10/15/19 20:01 10/15/19 20:00 10/15/19 19:10 98.2 F 116 H 16 10/15/19 19:00 108 H 116 H 114 H 10/15/19 18:26 117 H 10/15/19 17:52 10/15/19 17:00 100 H 10/15/19 16:01 10/15/19 16:00 99 F 10/15/19 15:16 98 H 10/15/19 12:45 102 H 10/15/19 12:33 10/15/19 12:27 10/15/19 12:09 10/15/19 12:01 10/15/19 12:00 98.7 F 97 H 20 BP BP BP BP BP Pulse Ox 10/16/19 07:28 141/87 95 10/16/19 04:01 129/81 10/16/19 03:07 128/91 10/16/19 03:00 128/91 120/79 117/70 10/16/19 00:01 119/84 10/15/19 20:01 146/87 10/15/19 20:00 96 10/15/19 19:10 124/80 95 10/15/19 19:00 146/86 124/80 120/79 10/15/19 18:26 124/80 95 10/15/19 17:52 120/79 10/15/19 17:00 10/15/19 16:01 146/97 10/15/19 16:00 10/15/19 15:16 142/89 93 10/15/19 12:45 10/15/19 12:33 154/94 10/15/19 12:27 154/94 10/15/19 12:09 120/84 10/15/19 12:01 136/84 10/15/19 12:00 136/84 154/94 94 Intake and Output 10/15/19 10/16/19 10/16/19 21:59 05:59 13:59 Output Total 1525 350 300 Balance -1525 -350 -300 Output: Void Amount 1525 350 300 Other: Meal Dinner Percent of Meal Consumed 100% Urine Appearance Clear Clear Clear Urine Color Bright Yellow Pale Bright Yellow Urine Odor Normal Normal Weight 198 lb 12.8 oz Intake & Output: Intake & Output 10/15/19 10/16/19 10/16/19 21:59 05:59 13:59 Output Total 1525 350 300 Balance -1525 -350 -300 Weight 198 lb 12.8 oz Output: Void Amount 1525 350 300 Other: Meal Dinner Percent of Meal Consumed 100% Urine Appearance Clear Clear Clear Urine Color Bright Yellow Pale Bright Yellow Urine Odor Normal Normal Dressing: Yes dry Neurological exam IM: Yes neurovascular intact - Labs CBC & BMP: 10/14/19 12:10 10/14/19 12:10 Labs: 10/14/19 10/08/19 12:10 11:04 Hgb 11.2 L 14.9 Hct 33.9 L 43.8 Assessment and Plan - Narrative A/P Narrative: did have issues with hypotension, stable at present. no ortho issues dc
--- NOTE | 2019-10-16 11:43 | Discharge Summary ---
Providers - Providers Patient information: Note initiated : 10/16/19 at 11:40 am Service Date, if different from initiated Date: [] Patient: Ata Foss 59 y/o M admitted on 10/13/19 for Right Total Hip Arthroplasty. Chief Complaint: [] Discharge date: 10/16/19 Attending physician: Ulises Roper Hospitalization Hospital Course: Pt was admitted for a R [place]. Pt underwent procedure on the day of admission. Pt then transferred to the floor for IV pain meds IV abx and PT. Whn doing PT pt had a hypotensive episode and a code white was called. Pt was evaluated by hospitalist. Discharge was delayed untill pt BP was stabilized. Pt will f/u in 2 weeks with ortho. Will take ASA for DVT prophylaxis. Discharge diagnosis: hip arthrosis Ortho Discharge - [place] - Patient Instructions Diet: Regular Diet Activity: activity as tolerated, weight bearing as tolerated Total Hip Protocol: Follow activity instructions as provided by Physical Therapy. Dressing Care: May shower in 3 days, Aquacel Ag - leave on for 5 days, Other Patient Education: Aspirin (By mouth), Anterior Hip Replacement (DC) Additional Instructions: Discharge Instructions: Do the exercises at home that physical therapy gave you. Per your choice of doing your own home physical therapy. Weight bearing as tolerated. Wear comfortable clothing for physical therapy. If you change your mind, you can take your prescription, photo ID, insurance cards, and current medication list with you to your first physical therapy appointment. You have the silver dressing, leave in place for 7-14 days then remove. If dressing becomes soiled (turns black), remove and use gauze 4x4 dressing and antimicrobial silver ointment ([id number]) and change daily. You may shower with dressing on, pat dry after shower. You may start showering on post op day #2. To avoid constipation while taking any narcotic pain medication, take an over the counter stool softener/laxative. Use ice packs as directed, on for 20 minutes at a time, throughout the day. Ice and elevation will help with pain and swelling. If you have any questions or concerns call your orthopedic surgeon before going to the emergency room. [facility] has a security incident response specialist physician 24 hours per day/7 days per week and can be reached at [phone]. Call for fevers above 100.5 or pain not controlled by medication. Your prescriptions are with your discharge information. Some medications were electronically transmitted to your pharmacy of choice. Take Aspirin as prescribed to prevent blood clots (see medication list). - Follow Up Plan Follow Up Appointments: Michael Pérez PA-C [Physician Lead Loader] - 10/28/19 9:20 am Disposition: Home, Self-Care Care Plan Goals: This discharge packet is provided to you to help keep you informed about your care. We want to ensure you get everything you need when you go home. You will also be receiving a call from us in a few days to follow up with you and see how you are doing since your discharge. This gives us a chance to listen to any concerns you maybe experiencing since you were discharged or any additional needs you may have, as well as providing us feedback on your care experience. We strive to always provide excellent care and thank you for your feedback and for choosing [facility]. Prognosis: Good Rehab Potential: Good - Orders For Discharge Prescriptions: Aspirin 81 mg PO BID #60 tab.chew Transmission Status: Received by [facility] Hydrocodone/APAP 7.5/325Mg [[place] 7.5-325Mg] 1 - 2 tab PO Q6HP PRN #75 tab PRN Reason: Pain Prescription Printed Additional Discharge Orders: Physical Therapy at Discharge - General Location: None Selected Walker Location: None Selected Pending Studies Resuscitation Status Full Code Diet Consistent Carbohydrate Diet Start FriOct 13 951 Aspirin (Aspirin) 81 mg PO BID [facility] Last Admin: 10/16/19 10:04 Dose: 81 mg Documented by: Admin: 10/15/19 21:18 Dose: 81 mg Documented by: Admin: 10/15/19 09:09 Dose: 81 mg Documented by: Admin: 10/14/19 20:39 Dose: 81 mg Documented by: Admin: 10/14/19 10:14 Dose: 81 mg Documented by: Admin: 10/13/19 22:19 Dose: 81 mg Documented by: JOSEMANUEL Diagnostic Test (Pha) (Accu-Chek) 1 each FS ACHS [facility] Last Admin: 10/16/19 07:39 Dose: 1 each Documented by: Admin: 10/15/19 21:18 Dose: 1 each Documented by: Admin: 10/15/19 17:32 Dose: 1 each Documented by: Admin: 10/15/19 11:29 Dose: 1 each Documented by: Admin: 10/15/19 09:09 Dose: 1 each Documented by: Admin: 10/15/19 08:03 Dose: 1 each Documented by: Admin: 10/14/19 20:51 Dose: 1 each Documented by: Cosigned by: LEFTY Admin: 10/14/19 17:13 Dose: 1 each Documented by: Admin: 10/14/19 12:19 Dose: 1 each Documented by: Admin: 10/14/19 07:04 Dose: 1 each Documented by: Admin: 10/13/19 20:34 Dose: 1 each Documented by: Admin: 10/13/19 16:53 Dose: 1 each Documented by: Admin: 10/13/19 11:30 Dose: 1 each Documented by: JERMAINE Docusate Sodium (Colace) 100 mg PO BID [facility] Last Admin: 10/16/19 10:04 Dose: 100 mg Documented by: Admin: 10/15/19 21:18 Dose: 100 mg Documented by: Admin: 10/15/19 09:09 Dose: 100 mg Documented by: Admin: 10/14/19 20:39 Dose: 100 mg Documented by: Admin: 10/14/19 10:24 Dose: 100 mg Documented by: Admin: 10/13/19 22:19 Dose: 100 mg Documented by: JOSEMANUEL Hydromorphone HCl (Dilaudid) 0 mg IV Q2HP PRN PRN Reason: PAIN LEVEL > 6 Last Admin: 10/13/19 11:22 Dose: 0.5 mg Documented by: JERMAINE Insulin Glargine (Lantus) 40 - 45 unit SQ BID [facility] Last Admin: 10/16/19 10:04 Dose: 40 unit Documented by: Admin: 10/15/19 21:19 Dose: 40 unit Documented by: Admin: 10/15/19 09:09 Dose: 40 unit Documented by: Admin: 10/14/19 21:56 Dose: 40 unit Documented by: Admin: 10/14/19 10:14 Dose: 40 unit Documented by: Admin: 10/13/19 22:27 Dose: 45 unit Documented by: JOSEMANUEL Insulin Human Lispro (Humalog) 0 unit SQ [facility]; Protocol Last Admin: 10/16/19 07:40 Dose: Not Given Documented by: Admin: 10/15/19 21:18 Dose: 8 unit Documented by: Admin: 10/15/19 17:32 Dose: 4 unit Documented by: Admin: 10/15/19 11:29 Dose: 2 unit Documented by: Admin: 10/15/19 08:03 Dose: Not Given Documented by: Admin: 10/14/19 21:01 Dose: Not Given Documented by: Admin: 10/14/19 17:15 Dose: Not Given Documented by: Admin: 10/14/19 12:19 Dose: 2 unit Documented by: Admin: 10/14/19 07:04 Dose: 2 unit Documented by: Admin: 10/13/19 22:21 Dose: Not Given Documented by: Admin: 10/13/19 17:13 Dose: 4 unit Documented by: [email or web address] Admin: 10/13/19 11:36 Dose: 4 unit Documented by: [email or web address] Ondansetron HCl (Zofran) 4 mg IV Q4HP PRN PRN Reason: Nausea And Vomiting Last Admin: 10/13/19 20:29 Dose: 4 mg Documented by: JOSEMANUEL Oxycodone HCl (Roxicodone) 0 mg PO Q4HP PRN PRN Reason: PAIN LEVEL 3-6 Last Admin: 10/16/19 10:45 Dose: 5 mg Documented by: Admin: 10/15/19 21:21 Dose: 5 mg Documented by: Admin: 10/15/19 05:14 Dose: 5 mg Documented by: Admin: 10/14/19 22:02 Dose: 5 mg Documented by: Admin: 10/14/19 16:21 Dose: 5 mg Documented by: Admin: 10/14/19 15:08 Dose: 5 mg Documented by: Admin: 10/14/19 10:29 Dose: 5 mg Documented by: Admin: 10/14/19 07:03 Dose: 5 mg Documented by: Admin: 10/14/19 01:48 Dose: 5 mg Documented by: Admin: 10/13/19 22:20 Dose: 5 mg Documented by: Admin: 10/13/19 18:01 Dose: 5 mg Documented by: Admin: 10/13/19 15:20 Dose: 5 mg Documented by: JERMAINE Senna (Senokot) 2 tab PO HS [facility] Last Admin: 10/15/19 21:19 Dose: 2 tab Documented by: Admin: 10/14/19 20:39 Dose: 2 tab Documented by: Admin: 10/13/19 22:20 Dose: 2 tab Documented by: JOSEMANUEL Sodium Chloride (Saline Flush) 10 ml IV Q8 [facility] Last Admin: 10/16/19 05:45 Dose: 10 ml Documented by: Admin: 10/15/19 22:00 Dose: 10 ml Documented by: Admin: 10/15/19 13:56 Dose: 10 ml Documented by: Admin: 10/15/19 05:01 Dose: 10 ml Documented by: Admin: 10/14/19 21:57 Dose: Not Given Documented by: Admin: 10/14/19 13:45 Dose: Not Given Documented by: Admin: 10/14/19 04:36 Dose: Not Given Documented by: Admin: 10/13/19 22:19 Dose: Not Given Documented by: Admin: 10/13/19 13:21 Dose: Not Given Documented by: JERMAINE Shift Summary 10/15/19 13:34 Shift Summary by Leo Tian Pt has had a good day. Alert and oriented, quite the joker. BPs great all morning while supine in bed with addition of Midodrine. Orthostatics at 1100 acceptable, with SBP 117/73 when achieving the standing position. Pt up with PT, ambulated in room and then had lunch while sitting in chair at bedside. Through all this SBP maintained >110. Borderline hypertensive while supine, Midodrine now discontinued. Continues to be SR/ST with HR right around 100. Sacral and gluteal edema, worse around surgical site side. Lung sounds clear with a hint of inspiratory crackles in posterior lower lobes. Active bowel tones with no BM to this point in the shift today. Voiding per urinal without difficulty. Pt needs encouragement to increase activity, especially with resol ution of symptoms while standing. Ortho rounded on patient, cleared for discharge from their perspective, once medically stable from Hospitalist standpoint. Mom in to visit for awhile around noon. Any additional and necessary updates to be provided at bedside. Thank you for the opportunity to provide care for this patient, wishing him a continued and speedy recovery. Initialized on 10/15/19 13:34 - END OF NOTE
--- NOTE | 2019-10-16 11:49 | Internal Med Progress Note ---
Medical - PN: Subj Patient information: Note initiated : 10/16/19 at 11:47 am Service Date, if different from initiated Date: [] Patient: Ata Foss 59 y/o M admitted on 10/13/19 for Right Total Hip Arthroplasty. Chief Complaint: [] Interval history: pt this morning felt continually better than previous days. no syncope, dizzy, weakness, nausea. Denies baseline nausea or lethargy. admits to 40lbs weight l oss in last few years though. blood sugars well controlled. occ low but not continually low. - Constitutional Vitals: Vital Signs Temp Pulse Resp BP Pulse Ox 97.9 F 89 20 141/87 95 10/16/19 07:28 10/16/19 03:00 10/16/19 07:28 10/16/19 07:28 10/16/19 07:28 Period Temp Pulse Resp BP Sys/Ferrara Pulse Ox Last 24 Hr 97.9 F-99 F 88-117 16-20 117-154/70-97 93-96 Intake and Output 10/15/19 10/16/19 10/16/19 21:59 05:59 13:59 Output Total 1525 350 300 Balance -1525 -350 -300 Weight 198 lb 12.8 oz Intake & Output: Intake & Output 10/15/19 10/16/19 10/16/19 21:59 05:59 13:59 Output Total 1525 350 300 Balance -1525 -350 -300 Weight 198 lb 12.8 oz Output: Void Amount 1525 350 300 Other: Meal Dinner Percent of Meal Consumed 100% Urine Appearance Clear Clear Clear Urine Color Bright Yellow Pale Bright Yellow Urine Odor Normal Normal General appearance: average body habitus, obese (mild) - Respiratory Respiratory exam: Present: CTAB - Cardiovascular Cardiovascular exam: Present: normal rate and rhythm - Extremities Exam Extremities exam: Absent: pedal edema - Neurological Exam Neurological exam: Present: alert, oriented X3 - Skin Skin exam: Present: dry, warm Medical - PN: Obj Da - Labs CBC & Chem 7: 10/14/19 12:10 10/14/19 12:10 Labs: Abnormal Lab Results 10/14/19 10/14/19 12:10 12:10 RBC 3.71 L Hgb 11.2 L Hct 33.9 L MPV 11.0 H Gran % 81.4 H Lymph % (Auto) 8.4 L Lymph # (Auto) 0.81 L Glucose 166 H Calcium 7.8 L Meds: Medications Aspirin (Aspirin) 81 mg PO BID [facility] Last Admin: 10/16/19 10:04 Dose: 81 mg Documented by: Bisacodyl (Dulcolax) 10 mg [place] Q2-3DAYS PRN PRN Reason: Constipation Dextrose (Dextrose 50%) 0 ml IV UD PRN PRN Reason: Hypoglycemia Diagnostic Test (Pha) (Accu-Chek) 1 each FS [facility] Last Admin: 10/16/19 07:39 Dose: 1 each Documented by: Docusate Sodium (Colace) 100 mg PO BID [facility] Last Admin: 10/16/19 10:04 Dose: 100 mg Documented by: Glucose (Insta-Glucose) 15 gm PO PRN PRN PRN Reason: Hypoglycemia Hydrocortisone (Cortef) 20 mg PO TID [facility] Hydromorphone HCl (Dilaudid) 0 mg IV Q2HP PRN PRN Reason: PAIN LEVEL > 6 Last Admin: 10/13/19 11:22 Dose: 0.5 mg Documented by: Insulin Glargine (Lantus) 40 - 45 unit SQ BID [facility] Last Admin: 10/16/19 10:04 Dose: 40 unit Documented by: Insulin Human Lispro (Humalog) 0 unit SQ [facility]; Protocol Last Admin: 10/16/19 07:40 Dose: Not Given Documented by: Magnesium Hydroxide (Milk Of Magnesia) 30 ml PO BIDP PRN PRN Reason: Constipation Naloxone HCl (Narcan) 0.4 mg IV ONCE PRN PRN Reason: Opiate Reversal Ondansetron HCl (Zofran) 4 mg IV Q4HP PRN PRN Reason: Nausea And Vomiting Last Admin: 10/13/19 20:29 Dose: 4 mg Documented by: Oxycodone HCl (Roxicodone) 0 mg PO Q4HP PRN PRN Reason: PAIN LEVEL 3-6 Last Admin: 10/16/19 10:45 Dose: 5 mg Documented by: Polyethylene Glycol (Miralax) 17 gm PO DAILYP PRN PRN Reason: Constipation Senna (Senokot) 2 tab PO [facility] Last Admin: 10/15/19 21:19 Dose: 2 tab Documented by: Sodium Biphosphate/Sodium Phosphate (Fleets Adult) 1 dose [place] Q3-4DAYS PRN PRN Reason: Constipation Sodium Chloride (Saline Flush) 10 ml IV Q8 [facility] Last Admin: 10/16/19 05:45 Dose: 10 ml Documented by: Throat Lozenges (Cepacol) 1 lozenge PO PRN PRN PRN Reason: Sore Throat Medical - PN: A/P - Time Spent With Patient Total time spent is greater than 50% in coordination of care (as documented) at patient's floor/unit and/or counseling patient: 25 - 35 minutes (1) Postural dizziness with near syncope Status: Acute Assessment and plan: Midrin was not effective as patient was markedly orthostatic this morning. His cosyntropin stim test was technically normal but suboptimal given his condition. I like to give him stress dose steroids. 2 hours later he no longer is orthostatic is from supine to standing position without any negative symptoms. Stop Midrin. We will do a quick wean of his steroids to oral then off plan for discharge pt with no syncope after steroids. I think he has mild adrenal insufficiency and suboptimal response to stress. will change to 20 mg bid hydrocortisone for 3 days. Follow with PCP Current Visit: Yes (2) Diabetes mellitus Problem details: suspect a degree of autonomic dysfunction. cont SSI Status: Acute Assessment and plan: cont SSI and diabetic diet A1C 6.7 Current Visit: Yes (3) Postoperative hypertension Problem details: Patient has had this following surgery 5 times in the past. This time he responded to steroids will follow Status: Acute Assessment and plan: has occurred last 3 surgeries. as above and follow. EKG and CXR ok suspect adrenal insufficiency cont 3 more days hydrocortisone ok for discharge Current Visit: No Medical - PN: Qual - VTE Deep Vein Thrombosis/Pulmonary Embolism Present on Admission: No
[2019-10-16] MEDS ORDERED: HYDROCORTISONE 10 MG TABLET PO SCH (15:00)
== END 2019-10-16 13:30 | disposition home or self-care (01) | DRG 470 ==
LOC: MEDSUR 04:50 → ICU 10-14 17:36
PROVIDERS: ADMIT Orthopaedic Surgery; ATTEND Orthopaedic Surgery Orthopaedic Surgery of the Spine